=== PATIENT | female | born 1970 | race Caucasian/White ===

== ENCOUNTER 2023-10-11 13:09 | Emergency (ER) | payer MEDICARE ==
[~2023-10-11] VITALS: Ht 165.1 cm; Wt 65.9 kg
[2023-10-11] MEDS ORDERED: NS 1,000 ML IV SCH (14:00)
[2023-10-11] MEDS ORDERED: Meclizine 12.5 MG TAB PO ONE ×2 (14:00→18:00)
[2023-10-11 14:03] LABS: BASO # 0.04 K/mm3 (0.02-0.10); EOS # 0.24 K/mm3 (0.04-0.40); HEMATOCRIT 34.8 % (37.0-47.0); HEMOGLOBIN 11.8 g/dL (12.5-16.0); LYMPH# 2.32 K/mm3 (1.50-4.00); MEAN CELL VOLUME 84 fl (78-100); MEAN CORPUSCULAR HEMOGLOBIN 29 pg (27-31); MEAN CORPUSCULAR HGB CONC 34 g/dL (33-37); MONO # 0.93 K/mm3 (0.20-0.80); NEU # 4.54 K/mm3 (1.40-6.50); PLATELET COUNT 258 K/mm3 (130-400); RED BLOOD COUNT 4.14 M/mm3 (4.10-5.30); WHITE BLOOD COUNT 8.1 K/mm3 (4.8-10.8)
[2023-10-11 14:10] LABS: ALBUMIN 4.9 g/dL (3.5-5.0)
[2023-10-11 14:11] LABS: SODIUM 137 mmol/L (136-145)
[2023-10-11 14:12] LABS: CALCIUM 10.2 mg/dL (8.3-10.5)
[2023-10-11 14:13] LABS: TOTAL PROTEIN 8.1 g/dL (6.4-8.3)
[2023-10-11 14:14] LABS: CARBON DIOXIDE 23 mmol/L (22-29)
[2023-10-11 14:15] LABS: TOTAL BILIRUBIN 0.5 mg/dL (0.2-1.2)
[2023-10-11 14:18] LABS: AST-SGOT 37 U/L (5-34)
[2023-10-11 14:19] LABS: ALT/SGPT 23 U/L (0-55)
[2023-10-11 14:33] LABS: GLUCOSE 51 mg/dL (65-105); TROPONIN-I < 0.030 ng/mL (0.00-0.033)
[2023-10-11] MEDS ORDERED: BISOPROLOL FUMA10 M1 PO (15:07)
[2023-10-11] MEDS ORDERED: COZAAR25 M1 PO (15:07)
[2023-10-11] MEDS ORDERED: ADDERALL 30 MG30 MG PO (15:08)
[2023-10-11] MEDS ORDERED: PERCOCET 325 MG1 TA2 PO (15:08)
[2023-10-11] MEDS ORDERED: FUROSEMIDE20 MG PO (15:09)
[2023-10-11] MEDS ORDERED: REXULTI1 MG PO (15:09)
[2023-10-11] MEDS ORDERED: ATIVAN1 M1 PO (15:09)
[2023-10-11 15:12] LABS: URINE WBC 0 /hpf (0-3)
[2023-10-11] MEDS ORDERED: D5 1/2 NS & 20mEq KCl 1,000 ML IV SCH (15:45)
[2023-10-11 16:00] LABS: URINE APPEARANCE CLEAR (CLEAR); URINE BILIRUBIN NEGATIVE (NEGATIVE); URINE BLOOD NEGATIVE (NEGATIVE); URINE COLOR YELLOW (YELLOW); URINE GLUCOSE NEGATIVE (NEGATIVE); URINE KETONE NEGATIVE (NEGATIVE); URINE LEUKOCYTE ESTERASE NEGATIVE (NEGATIVE); URINE MUCUS PRESENT (NOT PRESENT); URINE NITRATE NEGATIVE (NEGATIVE); URINE PROTEIN(semi-quant) NEGATIVE (NEGATIVE)
[2023-10-11] MEDS ORDERED: Acetaminophen 500 MG TAB PO ONE (18:00)
[2023-10-11] MEDS ORDERED: Ondansetron 4 MG/2 ML VIAL IV ONE (18:15)
[2023-10-11 19:41] LABS: CALCIUM 8.7 mg/dL (8.3-10.5)
[2023-10-11] MEDS ORDERED: GOOD NEIGHBOR M25 M1 PO (21:07)
[2023-10-11] MEDS ORDERED: PHENERGAN 25 TA25 MG PO (21:07)
[2023-10-11 21:20] VITALS: BP 140/95
== END 2023-10-11 21:20 | disposition home or self-care (01) ==
LOC: ED 13:09
PROVIDERS: Nurse Practitioner
DX: R42 Dizziness and giddiness (principal); E86.0 Dehydration; E16.2 Hypoglycemia, unspecified; I12.9 Hypertensive chronic kidney disease with stage 1 through stage 4 chronic kidney disease, or unspecified chronic kidney disease; N18.9 Chronic kidney disease, unspecified; N17.9 Acute kidney failure, unspecified
CPT/HCPCS: J2405; J3480; J7030